=== PATIENT | male | born 1950 | race Caucasian/White ===

== ENCOUNTER 2016-06-25 15:58 | Outpatient (CLI) | payer OTHER ==
--- NOTE | 2016-06-25 16:50 | DIAGNOSTIC IMAGING REPORT ---
PROCEDURE: XR CHEST 2 VIEW INDICATION: CHRONIC BRONCHITIS TECHNIQUE: PA and lateral views. COMPARISON: Chest 08/27/2013 and 11/04/2010 FINDINGS: Diffuse coarsening of the interstitial markings and mild pleural thickening diffusely. No pleural effusions or pneumothorax. The osseous structures appear intact. IMPRESSION: 1. 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 No change from the previous study. No acute infiltrates.
== END 2016-06-25 23:00 ==
LOC: XR SRH 15:58 → LAB SRH 15:58 → XR SRH 23:00
DX: J43.9 Emphysema, unspecified (principal); J84.10 Pulmonary fibrosis, unspecified